=== PATIENT | male | born 1985 | race Caucasian/White ===

== ENCOUNTER → 2017-08-27 10:30 | Outpatient (CLI) | payer MEDICARE, SELFPAY ==
[2017-08-27] MEDS: Alteplase 2 MG/2 ML Vial IV ×2 (11:42→11:46)
== END ==
PROVIDERS: Family Provider Family Medicine; PCP Family Medicine
DX: T82.898A Other specified complication of vascular prosthetic devices, implants and grafts, initial encounter (principal); Z45.2 Encounter for adjustment and management of vascular access device
CPT/HCPCS: 36593; J2997; A4216

== ENCOUNTER 2017-09-27 16:30 | Outpatient (RCR) | payer MEDICARE, SELFPAY ==
[2017-09-13 13:37] VITALS: BP 146/100; PULSE 50; RESP 16; TEMP 37.1; BMI 81.3
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
[2017-09-27 16:38] VITALS: BP 90/58; PULSE 88; RESP 14; TEMP 37.2; BMI 81.3
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
== END 2017-10-12 23:59 ==
LOC: WC 16:30
PROVIDERS: Family Provider Family Medicine; PCP Family Medicine; Visit Provider Family Medicine
DX: L89.223 Pressure ulcer of left hip, stage 3 (principal); G82.50 Quadriplegia, unspecified; E78.5 Hyperlipidemia, unspecified; E66.9 Obesity, unspecified; Z71.3 Dietary counseling and surveillance; I10 Essential (primary) hypertension
CPT/HCPCS: 11042; 97597; 99213; G0463

== ENCOUNTER → 2017-10-08 18:43 | Outpatient (CLI) | payer MEDICARE, SELFPAY ==
[2017-10-08 19:07] LABS: Absolute Neutrophil Count 2.7 X10^3/uL (2.0-7.7); Basophil# 0.06 X10^3/uL; Basophil% 1.2 % (0-1); Eosinophils% 13.7 % (0-5); Hematocrit 35.7 % (40-54); Hemoglobin 10.7 g/dl (13.0-16.5); Lymphocyte % 19.6 % (19-41); Mean Corpuscular Hgb 23.3 pg (27.0-32.0); Mean Corpuscular Volume 77.8 fL (80-94); Mean Platelet Vol. 9.1 fl (6.2-12.0); Monocyte# 0.61 X10^3/uL; Monocyte% 11.9 % (0-10); Neutrophil # 2.74 X10^3/uL (2.7-7.7); Neutrophil % 53.6 % (47-70); Platelet Count 280 K/mm3 (150-450); RBC Distribution Width CV 17.5 % (11.6-14.6); RBC Distribution Width SD 50.1 fl (35.1-43.9); Red Blood Count 4.59 M/mm3 (4.6-6.2); White Blood Count 5.1 K/mm3 (4.4-11.0)
[2017-10-08 19:16] LABS: POSITIVE COUNT NO; POSITIVE DIFFERENTIAL NO; POSITIVE MORPHOLOGY NO
[2017-10-08 19:17] LABS: Vancomycin, Trough Level 9.1 ug/mL (5.0-15.0)
[2017-10-08 19:19] LABS: ALB/GLOB Ratio 0.7 RATIO (0.9-2.4); AST(SGOT) 29 U/L (15-37); Alanine Aminotransfer ALT/SGPT 47 U/L (16-61); Albumin, Serum 2.8 g/dL (3.2-5.0); Alkaline Phosphatase 103 U/L (45-117); Anion Gap 6 (5-15); BUN 10 mg/dL (7-18); BUN/Creat Ratio 19.9 RATIO (10-20); Calcium,Total 8.5 mg/dL (8.5-10.1); Chloride 104 mmol/L (98-107); EST Glomerular Filtration Rate 203 mL/min (>60); Est Glom Filt Rate - Afr Amer 245 mL/min (>60); Glucose 56 mg/dL (74-106); Potassium 4.3 mmol/L (3.5-5.1); Protein, Total 6.8 g/dL (6.4-8.2); Sodium Level 142 mmol/L (136-145)
== END ==
DX: N12 Tubulo-interstitial nephritis, not specified as acute or chronic (principal); Z93.6 Other artificial openings of urinary tract status
CPT/HCPCS: 80053; 80202; 85025

== ENCOUNTER → 2017-11-19 21:06 | Outpatient (CLI) | payer MEDICARE, SELFPAY ==
[2017-11-19 21:29] LABS: Anion Gap 6 (5-15); BUN 22 mg/dL (7-18); BUN/Creat Ratio 35.9 RATIO (10-20); Calcium,Total 8.8 mg/dL (8.5-10.1); Chloride 104 mmol/L (98-107); Creatinine, Serum 0.61 mg/dL (0.70-1.30); EST Glomerular Filtration Rate 161 mL/min (>60); Est Glom Filt Rate - Afr Amer 195 mL/min (>60); Glucose 67 mg/dL (74-106); Hematocrit 38.3 % (40-54); Hemoglobin 11.7 g/dl (13.0-16.5); Mean Corp Hgb Conc 30.5 g/gl (32-36); Mean Corpuscular Hgb 24.2 pg (27.0-32.0); Mean Corpuscular Volume 79.3 fL (80-94); Mean Platelet Vol. 9.8 fl (6.2-12.0); Platelet Count 234 K/mm3 (150-450); Potassium 4.1 mmol/L (3.5-5.1); RBC Distribution Width CV 16.1 % (11.6-14.6); Red Blood Count 4.83 M/mm3 (4.6-6.2); Sodium Level 139 mmol/L (136-145); Vancomycin, Trough Level < 0.8 ug/mL (5.0-15.0); White Blood Count 5.9 K/mm3 (4.4-11.0)
[2017-11-19 21:31] LABS: Scan Indicated on CBC? Y/N NO
== END ==
DX: L89.303 Pressure ulcer of unspecified buttock, stage 3 (principal)
CPT/HCPCS: 80048; 80202; 85027

== ENCOUNTER 2018-06-04 10:07 | Outpatient (RCR) | payer MEDICARE, SELFPAY ==
[2018-06-04 10:36] VITALS: BP 99/67; PULSE 74; RESP 18; TEMP 36.7; BMI 36.0
--- NOTE | 2018-06-04 12:19 | PCM.CONHBO ---
(1) Pressure ulcer of left buttock, stage 4 Status: Chronic Current Visit: Yes Code(s): L89.324 - Pressure ulcer of left buttock, stage 4 (2) Osteomyelitis Status: Acute Current Visit: Yes Code(s): M86.9 - Osteomyelitis, unspecified Comment: Left Ischium. History of Present Illness Presenting Chief Complaint: Non healing Stage IV pressure ulcer of left buttock with newly diagnosed Osteomyelitis. The patient is a 32 year old M who [facility] to evaluate the possibility of initiating hyperbaric oxygen therapy for treatment of left ischial tuberosity osteomyelitis. He was referred here from [facility] wound center. Recently had a bone scan due to concern for possible osteomyelitis secondary to nonhealing left buttock pressure ulcer. Scheduled to have an MRI soon. Has had a PICC line placed and is currently on IV daptomycin daily and meropenem every 8 hours. He is being followed by his infectious disease physician. He has done well so far. Denies chills, fever or otherwise feeling of unwell. He denies any past history of heart disease/concerns, no history of hypertension or diabetes. No problems with his vision or hearing and has also had no procedures involving these. No concerns with his breathing. He is a non-smoker. He has never had hyperbaric oxygen treatments before. Past Medical History Chronic Problems Quadriplegia and quadriparesis (Chronic) Quadriplegia following spinal cord injury (Chronic) Left nephrolithiasis (Chronic) Peritoneal abscess (Chronic) Pressure ulcer of left buttock, stage 3 (Chronic) Pressure ulcer of left buttock, stage 4 (Chronic) Allergies/Adverse Reactions: Allergies No Known Allergies Allergy (Verified 12/09/14 10:34) Home Medications: Ambulatory Orders Medication Instructions Recorded Ascorbic Acid [Vitamin C] 1,000 mg PO DAILY 11/10/14 Atorvastatin Calcium [Lipitor] 5 mg PO QHS 11/10/14 Baclofen 20 mg PO 4X/DAY 11/10/14 Calcium +D & Minerals Chew Tab 630 mg PO DAILY 11/10/14 Cranberry 450 mg PO DAILY 11/10/14 Diazepam [Valium] 10 mg PO Q6H PRN PRN 11/10/14 Duloxetine Hcl [Cymbalta] 60 mg PO DAILY 11/10/14 Multivitamin 1 tab-cap PO DAILY 11/10/14 [place]-3 Fatty Acids/Fish Oil [Fish 1,000 mg PO DAILY 11/10/14 Oil 1,000 mg Capsule] Oxybutynin [Ditropan] 5 mg PO DAILY 11/10/14 Oxycodone HCl/Acetaminophen 1 - 2 tab-cap PO Q4H PRN PRN 11/10/14 [Percocet 5-325] Rivaroxaban [Xarelto] 20 mg PO DAILY 11/10/14 Levofloxacin [Levaquin] 750 mg PO DAILY 12/13/14 Maternal Family History: Diabetes, Hypertension Smoking Status: Former smoker Review of Systems Constitutional: Denies: Anorexia, Chills, Fever Eyes: Denies: Blurred vision, Pain, Redness HEENT: Denies: Difficulty Hearing, Difficulty Swallowing Cardiovascular: Denies: Chest Pain, Chest Tightness Respiratory: Denies: Cough, Hemoptysis Gastrointestinal: Denies: Abdominal Pain, Hematemesis, Vomiting Genitourinary: Denies: Hematuria Skin: Denies: Jaundice - Physical Exam Vital Signs Temp Pulse Resp BP 98.0 F 74 18 99/67 06/04/18 10:36 06/04/18 10:36 06/04/18 10:36 06/04/18 10:36 General: Alert, Oriented x3, Cooperative, No apparent distress HEENT: Atraumatic, Normocephalic Oral: Moist Mucosa Neck: Supple Lungs: Normal air movement Cardiovascular: Regular rate, Regular Rhythm, Normal S1, Normal S2 Abdomen: Soft, Non Tender Extremities: No cyanosis Wound Measurements and Assessment WC - Nurse 2 - General Ulcer CM Notes Start: 06/04/18 10:36 Freq: Status: Active Protocol: Activity Type Activity Date Activity User E-Sign Co-Sign Detail Recorded Client Recorded Date Recorded By Document 06/04/18 11:25 MW [id number] 06/04/18 11:37 MW 06/04/18 11:25 Wound Center Nurse 2 [Procedure/Treatment] #2 L Ischial -Time 11:25 -Correct Patient Yes -Correct Side, Site, Position Yes -Correct Procedure Yes -Procedure Performed No [See Physician Procedure note for Specifics] Pain Scale: 0-10 Numeric [Pain] -Is Patient Pain Free? Yes Musculoskeletal: No Muscle Wasting Neurological: Cranial nerves II-XII grossly intact Psych/Mental Status: Normal Affect Assessment/Plan Active Problems Pressure ulcer of left buttock, stage 4 (Chronic) Osteomyelitis (Acute) Left Ischium. SANJAY CHESTER III is an appropriate candidate for hyperbaric oxygen therapy. Hyperbaric Oxygen Therapy would be an essential adjunct in the resolution and treatment of this patient's presenting problem. This patient has sufficient physiologic and psychological stamina to undergo the rigors of hyperbaric oxygen therapy. As such, I recommend the following: Hyperbaric Oxygen Treatments at 2.0 LUISA in 100% Oxygen for 90 minutes per treatment, for 40 treatments. I have discussed the possible benefits of hyperbaric oxygen therapy with this patient. I have also presented and described the risks, including: air gas embolism, pneumothorax, central nervous system and pulmonary oxygen toxicity, flash pulmonary edema, hypoglycemia, reversible visual refractive changes, ear and sinus santy-trauma, and confinement anxiety. The patient has verbalized understanding of these risks, and is still wanting to undergo hyperbaric oxygen therapy. The patient understands the significant time and transportation commitment involved in daily treatments of up to two hours duration and has stated that they are willing to commit to this therapy. - HBOT Diagnosis Chronic Refractory Osteomyelitis (730.1) - Left ischial tuberosity Chest x-ray and EKG ordered. Most recent labs from 06/02/2018 reviewed. No concerns.
== END 2018-06-12 23:59 ==
LOC: WC 10:07
PROVIDERS: Family Provider Family Medicine; PCP Family Medicine; Visit Provider Internal Medicine
DX: L89.324 Pressure ulcer of left buttock, stage 4 (principal); M86.8X8 Other osteomyelitis, other site; G82.50 Quadriplegia, unspecified; Z79.899 Other long term (current) drug therapy
CPT/HCPCS: 99213; G0463

== ENCOUNTER 2018-06-09 12:48 | Outpatient (RCR) | payer MEDICARE, SELFPAY ==
[2018-05-26 16:38] LABS: Hematocrit 41.4 % (40-54); Hemoglobin 13.3 g/dl (13.0-16.5); Mean Corp Hgb Conc 32.1 g/gl (32-36); Mean Corpuscular Hgb 26.2 pg (27.0-32.0); Mean Corpuscular Volume 81.7 fL (80-94); Platelet Count 179 K/mm3 (150-450); RBC Distribution Width CV 15.9 % (11.6-14.6); RBC Distribution Width SD 46.9 fl (35.1-43.9); Red Blood Count 5.07 M/mm3 (4.6-6.2); White Blood Count 4.1 K/mm3 (4.4-11.0)
[2018-05-26 16:40] LABS: Scan Indicated on CBC? Y/N NO
[2018-05-26 16:43] LABS: Erythrocyte Sedimentation Rate 15 mm/hr (0-15)
[2018-05-26 17:19] LABS: ALB/GLOB Ratio 0.9 RATIO (0.9-2.4); AST(SGOT) 34 U/L (15-37); Alanine Aminotransfer ALT/SGPT 55 U/L (16-61); Albumin, Serum 3.2 g/dL (3.2-5.0); Alkaline Phosphatase 83 U/L (45-117); Anion Gap 6 (5-15); BUN 13 mg/dL (7-18); CPK Total, Creatine Kinase 32 U/L (39-308); Calcium,Total 8.6 mg/dL (8.5-10.1); Chloride 107 mmol/L (98-107); Creatinine, Serum 0.48 mg/dL (0.70-1.30); EST Glomerular Filtration Rate 212 mL/min (>60); Est Glom Filt Rate - Afr Amer 257 mL/min (>60); Globulin 3.7 g/dL (2.2-4.2); Glucose 79 mg/dL (74-106); Potassium 4.2 mmol/L (3.5-5.1); Protein, Total 6.9 g/dL (6.4-8.2); Sodium Level 143 mmol/L (136-145)
[2018-06-02 12:01] LABS: ALB/GLOB Ratio 0.9 RATIO (0.9-2.4); AST(SGOT) 39 U/L (15-37); Alanine Aminotransfer ALT/SGPT 68 U/L (16-61); Albumin, Serum 3.2 g/dL (3.2-5.0); Alkaline Phosphatase 96 U/L (45-117); Anion Gap 5 (5-15); BUN 11 mg/dL (7-18); BUN/Creat Ratio 22.1 RATIO (10-20); CPK Total, Creatine Kinase 31 U/L (39-308); Calcium,Total 8.5 mg/dL (8.5-10.1); Chloride 107 mmol/L (98-107); EST Glomerular Filtration Rate 204 mL/min (>60); Est Glom Filt Rate - Afr Amer 247 mL/min (>60); Globulin 3.6 g/dL (2.2-4.2); Glucose 83 mg/dL (74-106); Potassium 4.4 mmol/L (3.5-5.1); Protein, Total 6.8 g/dL (6.4-8.2); Sodium Level 141 mmol/L (136-145)
[2018-06-02 12:09] LABS: Erythrocyte Sedimentation Rate 13 mm/hr (0-15)
[2018-06-02 12:10] LABS: Hematocrit 42.3 % (40-54); Hemoglobin 13.4 g/dl (13.0-16.5); Mean Corp Hgb Conc 31.7 g/gl (32-36); Mean Corpuscular Hgb 26.1 pg (27.0-32.0); Mean Corpuscular Volume 82.5 fL (80-94); Mean Platelet Vol. 9.8 fl (6.2-12.0); Platelet Count 169 K/mm3 (150-450); RBC Distribution Width CV 15.6 % (11.6-14.6); RBC Distribution Width SD 46.8 fl (35.1-43.9); Red Blood Count 5.13 M/mm3 (4.6-6.2); Scan Indicated on CBC? Y/N NO; White Blood Count 5.1 K/mm3 (4.4-11.0)
[2018-06-09 13:25] LABS: Hematocrit 41.8 % (40-54); Hemoglobin 13.5 g/dl (13.0-16.5); Mean Corp Hgb Conc 32.3 g/gl (32-36); Mean Corpuscular Hgb 26.7 pg (27.0-32.0); Mean Corpuscular Volume 82.6 fL (80-94); Platelet Count 165 K/mm3 (150-450); RBC Distribution Width CV 15.1 % (11.6-14.6); RBC Distribution Width SD 44.6 fl (35.1-43.9); Red Blood Count 5.06 M/mm3 (4.6-6.2); White Blood Count 4.2 K/mm3 (4.4-11.0)
[2018-06-09 13:26] LABS: Erythrocyte Sedimentation Rate 12 mm/hr (0-15); Scan Indicated on CBC? Y/N NO
[2018-06-09 13:31] LABS: ALB/GLOB Ratio 0.8 RATIO (0.9-2.4); AST(SGOT) 39 U/L (15-37); Alanine Aminotransfer ALT/SGPT 59 U/L (16-61); Albumin, Serum 3.1 g/dL (3.2-5.0); Alkaline Phosphatase 107 U/L (45-117); Anion Gap 6 (5-15); BUN 13 mg/dL (7-18); CPK Total, Creatine Kinase 37 U/L (39-308); CRP 6.64 mg/L (0.0-3.0); Calcium,Total 8.4 mg/dL (8.5-10.1); Chloride 107 mmol/L (98-107); Creatinine, Serum 0.54 mg/dL (0.70-1.30); EST Glomerular Filtration Rate 185 mL/min (>60); Est Glom Filt Rate - Afr Amer 224 mL/min (>60); Globulin 3.8 g/dL (2.2-4.2); Glucose 89 mg/dL (74-106); Potassium 4.5 mmol/L (3.5-5.1); Protein, Total 6.9 g/dL (6.4-8.2); Sodium Level 143 mmol/L (136-145)
== END 2018-06-12 23:59 ==
LOC: HHLAB 12:48
PROVIDERS: Family Provider Family Medicine; PCP Family Medicine
DX: M46.28 Osteomyelitis of vertebra, sacral and sacrococcygeal region (principal); L89.322 Pressure ulcer of left buttock, stage 2; B95.62 Methicillin resistant Staphylococcus aureus infection as the cause of diseases classified elsewhere; B96.5 Pseudomonas (aeruginosa) (mallei) (pseudomallei) as the cause of diseases classified elsewhere; G82.20 Paraplegia, unspecified; Z45.2 Encounter for adjustment and management of vascular access device; Z51.81 Encounter for therapeutic drug level monitoring; Z79.2 Long term (current) use of antibiotics; Z46.6 Encounter for fitting and adjustment of urinary device; Z86.718 Personal history of other venous thrombosis and embolism
CPT/HCPCS: 80053; 82550; 85027; 85652; 86140

== ENCOUNTER 2018-06-16 15:01 | Outpatient (RCR) | payer MEDICARE, SELFPAY ==
[2018-06-16 15:47] LABS: Hemoglobin 13.5 g/dl (13.0-16.5); Mean Corp Hgb Conc 32.1 g/gl (32-36); Mean Corpuscular Hgb 27.1 pg (27.0-32.0); Mean Corpuscular Volume 84.2 fL (80-94); Mean Platelet Vol. 10.4 fl (6.2-12.0); Platelet Count 164 K/mm3 (150-450); RBC Distribution Width SD 44.1 fl (35.1-43.9); Red Blood Count 4.99 M/mm3 (4.6-6.2); White Blood Count 4.4 K/mm3 (4.4-11.0)
[2018-06-16 15:53] LABS: Scan Indicated on CBC? Y/N NO
[2018-06-16 16:01] LABS: ALB/GLOB Ratio 0.9 RATIO (0.9-2.4); AST(SGOT) 44 U/L (15-37); Alanine Aminotransfer ALT/SGPT 71 U/L (16-61); Albumin, Serum 3.3 g/dL (3.2-5.0); Alkaline Phosphatase 109 U/L (45-117); Anion Gap 7 (5-15); BUN 15 mg/dL (7-18); CPK Total, Creatine Kinase 31 U/L (39-308); CRP 8.01 mg/L (0.0-3.0); Calcium,Total 8.6 mg/dL (8.5-10.1); Chloride 105 mmol/L (98-107); Creatinine, Serum 0.62 mg/dL (0.70-1.30); EST Glomerular Filtration Rate 157 mL/min (>60); Est Glom Filt Rate - Afr Amer 190 mL/min (>60); Globulin 3.6 g/dL (2.2-4.2); Glucose 88 mg/dL (74-106); Potassium 4.3 mmol/L (3.5-5.1); Protein, Total 6.9 g/dL (6.4-8.2); Sodium Level 142 mmol/L (136-145)
[2018-06-16 16:02] LABS: Erythrocyte Sedimentation Rate 15 mm/hr (0-15)
== END 2018-07-13 23:59 ==
LOC: HHLAB 15:01
PROVIDERS: Family Provider Family Medicine; PCP Family Medicine
DX: L89.322 Pressure ulcer of left buttock, stage 2 (principal); M46.28 Osteomyelitis of vertebra, sacral and sacrococcygeal region; B95.62 Methicillin resistant Staphylococcus aureus infection as the cause of diseases classified elsewhere; B96.5 Pseudomonas (aeruginosa) (mallei) (pseudomallei) as the cause of diseases classified elsewhere; G82.20 Paraplegia, unspecified; Z45.2 Encounter for adjustment and management of vascular access device; Z51.81 Encounter for therapeutic drug level monitoring; Z79.2 Long term (current) use of antibiotics; Z46.6 Encounter for fitting and adjustment of urinary device; Z86.718 Personal history of other venous thrombosis and embolism
CPT/HCPCS: 80053; 82550; 85027; 85652; 86140

== ENCOUNTER 2018-07-24 10:03 | Day surgery (SDC) | payer MEDICARE, SELFPAY ==
[2018-07-24 10:36] VITALS: BP 103/64; PULSE 65; RESP 18; TEMP 36.2; O2SAT 95; BMI 36.1
--- NOTE | 2018-07-24 11:51 | PCM.DC ---
You will use the following diet at home:: No restrictions Discharge Activity: Return to Normal Activity Call your doctor if your incision/area has: Foul Smelling Discharge Allergies/Adverse Reactions: Allergies No Known Allergies Allergy (Verified 07/24/18 10:29) Medications to take at Discharge Ascorbic Acid [Vitamin C] 1,000 mg PO DAILY 11/10/14 Atorvastatin Calcium [Lipitor] 5 mg PO QHS 11/10/14 Baclofen 20 mg PO 4X/DAY 11/10/14 Calcium +D & Minerals Chew Tab 630 mg PO DAILY 11/10/14 Cranberry 450 mg PO DAILY 11/10/14 Diazepam [Valium] 10 mg PO Q6H PRN PRN 11/10/14 Duloxetine Hcl [Cymbalta] 60 mg PO DAILY 11/10/14 Multivitamin 1 tab-cap PO DAILY 11/10/14 [place]-3 Fatty Acids/Fish Oil [Fish Oil 1,000 mg Capsule] 1,000 mg PO DAILY 11/10/14 Oxybutynin [Ditropan] 5 mg PO DAILY 11/10/14 Oxycodone HCl/Acetaminophen [Percocet 5-325] 1 - 2 tab-cap PO Q4H PRN PRN 11/10/14 Rivaroxaban [Xarelto] 20 mg PO DAILY 11/10/14 Levofloxacin [Levaquin] 750 mg PO DAILY 12/13/14 Primary Care Physician: Carlos Christian MD [Primary Care Provider] - Test Results: Test results from this visit will be discussed in further detail at your follow-up appointment, if applicable. Please Follow Up With: Lanre Howard MD When: 3 weeks
--- NOTE | 2018-07-24 11:52 | PCM.OPRPT ---
Problem List (1) Chronic serous otitis media of both ears Status: Chronic Report of Operation Date of Procedure: 07/24/18 Pre-Operative Diagnosis: chronic serous otitis Post-Operative Diagnosis: chronic serous otitis Surgery/Procedure Performed:: placement of pressure equalization tubes, right and left Type of Anesthesia:: General Description of Procedure: on the day of the procedure, after appropriate informed consent was obtained, the patient was brought to the operating room and placed in supine position on the operating table. he was placed under general mask anesthesia by the anesthesiologist. the left ear was examined using the binocular operating microscope. a speculum was placed. a radial myringotomy was made in the anterior/inferior quadrant. a serous effusion was suctioned. a islas tympanostomy tube was placed. floxin otic drops were instilled. the right ear was examined using the binocular operating microscope. a speculum was placed. a radial myringotomy was made in the anterior/inferior quadrant. a serous effusion was suctioned. a islas tympanostomy tube was placed. floxin otic drops were instilled. the patient was brought to the PACU in stable condition.
[2018-07-24] MEDS: Ciprofloxacin 0.3% 2.5ml Bottle 1 DRP (12:05)
[2018-07-24 12:27] VITALS: BP 103/64; BP 96/61; PULSE 73; RESP 14; TEMP 36.3; O2SAT 96
[2018-07-24 12:31] VITALS: BP 103/64; BP 90/60; PULSE 70; RESP 14; O2SAT 93
[2018-07-24 12:46] VITALS: BP 103/64; BP 89/55; PULSE 76; RESP 16; O2SAT 95
[2018-07-24 13:00] VITALS: BP 103/64; BP 85/75; PULSE 59; RESP 14; TEMP 36.4; O2SAT 95
[2018-07-24 13:27] VITALS: BP 103/64
== END 2018-07-24 13:39 | disposition home or self-care (01) ==
LOC: SDC 10:03 → AC 10:06
PROVIDERS: Family Provider Family Medicine; PCP Family Medicine; Referring Provider Otolaryngology; Visit Provider Otolaryngology
PROC: (CPT 69436; principal; 2018-07-24 11:55)
DX: H65.23 Chronic serous otitis media, bilateral (principal); H90.0 Conductive hearing loss, bilateral; F32.9 Major depressive disorder, single episode, unspecified; F41.9 Anxiety disorder, unspecified; E78.00 Pure hypercholesterolemia, unspecified; G83.9 Paralytic syndrome, unspecified; Z87.891 Personal history of nicotine dependence; Z87.442 Personal history of urinary calculi; Z86.718 Personal history of other venous thrombosis and embolism; Z79.891 Long term (current) use of opiate analgesic; Z79.899 Other long term (current) drug therapy
CPT/HCPCS: 00126; 69436; J7120